=== PATIENT | female | born 1955 | race African-American/Black ===

== ENCOUNTER 2019-12-23 10:44 | Inpatient (IN) ==
[2019-12-23 11:29] LABS: Basophils % 0.5 % (0.0-0.8); Eosinophils # 0.1 10*3/uL (0.0-0.87); Hematocrit 46.7 VOL% (35.7-47.0); Immature Granulocytes % 0.3 %; Immature Granulocytes Absolute 0.02 #; Lymphocytes % 16.6 % (21.3-54.2); Mean Corpuscular HGB Conc 32.1 GM/DL (32-36); Mean Platelet Volume 9.7 FL (9.6-12.0); Monocytes % 5.1 % (1.7-12.7); Neutrophils % 76.5 % (38.7-73.9); Platelet Count 228 T/CUMM (130-400); Red Blood Count 5.02 MC/CUMM (3.8-5.5); Red Cell Distribution Width 13.3 % (9.3-17.3); White Blood Count 6.1 T/CUMM (4-12)
[2019-12-23 11:50] LABS: Albumin 2.8 G/DL (3.4-5.0); Bilirubin,Total 0.7 MG/DL (0.2-1.0); Calcium 9.3 MG/DL (8.5-10.1); Osmolality,Calculated 274.7 MOS/KG (273-304); Total Protein 8.4 G/DL (6.4-8.3)
[2019-12-23 11:53] LABS: Band Neutrophils 1 % (0-10); Eosinophils 1 % (0-10); Hypochromasia Slight; Lymphocytes 16 % (20-55); Platelet Estimate Normal; Segmented Neutrophils 75 % (50-85); Total Cells Counted 100
[2019-12-23 12:07] LABS: Apearance,Urine Slightly Hazy (Clear); Bacteria,Urine Many /HPF (Few); Bilirubin,Urine Negative (Negative); Blood, Urine Small mg/dL (Negative); Glucose,Urine (UA) Negative (Negative); Ketones,Urine Negative (Negative); Mucus,Urine Few /LPF (Occasional); Nitrite,Urine Positive (Negative); Protein,Urine 100 MG/DL; RBC,Urine 2 /HPF (0-4); Squamous Epithelial Cell,Urine Occasional /HPF (0-10); Urine Color Amber (Yellow)
[2019-12-23] MEDS ORDERED: DEXTROSE 50% 25 GM/50 ML VIAL IV PRN (13:57)
[2019-12-23] MEDS ORDERED: GLUCAGON 1 MG VIAL IM PRN (13:57)
[2019-12-23] MEDS ORDERED: ONDANSETRON 4 MG/2 ML VIAL IV PRN (13:57)
[2019-12-23] MEDS ORDERED: NICOTINE 21 MG/24 HR PATCH TRANSDERM PRN (13:57)
[2019-12-23] MEDS ORDERED: guaiFENesin/DM ER 600-30 MG TABLET PO PRN (13:57)
[2019-12-23] MEDS ORDERED: ENOXAPARIN 40 MG/0.4 ML SYRINGE SUBCUT SCH (14:00)
[2019-12-23] MEDS ORDERED: SODIUM CHLORIDE 0.9% 1,000 ML IV ONE (14:01)
[2019-12-23] MEDS ORDERED: AZITHROMYCIN INJ 500 MG in SODIUM CHLORIDE 0.9% 250 ML IV SCH (14:30)
[2019-12-23] MEDS: cefTRIAXone 1,000 MG in SYRINGE 1 EACH IV SCH (16:30)
[2019-12-23] MEDS: SODIUM CHLORIDE 0.9% 1,000 ML IV SCH (17:45)
[2019-12-23] MEDS: AZITHROMYCIN INJ 500 MG in SODIUM CHLORIDE 0.9% 250 ML IV SCH (17:45)
[2019-12-23] MEDS: ENOXAPARIN 40 MG/0.4 ML SYRINGE SUBCUT SCH (22:05)
[2019-12-24 06:06] LABS: Basophils % 0.6 % (0.0-0.8); Eosinophils # 0.1 10*3/uL (0.0-0.87); Eosinophils % 1.6 % (0.00-10.9); Hematocrit 36.9 VOL% (35.7-47.0); Hemoglobin 11.9 GM/DL (12.0-16.0); Immature Granulocytes % 0.6 %; Immature Granulocytes Absolute 0.03 #; Lymphocytes # 1.3 10*3/uL (1.4-4.0); Lymphocytes % 24.9 % (21.3-54.2); Mean Corpuscular HGB Conc 32.2 GM/DL (32-36); Mean Corpuscular Volume 91.8 FL (87-102); Mean Platelet Volume 9.8 FL (9.6-12.0); Monocytes % 6.6 % (1.7-12.7); Neutrophils % 65.7 % (38.7-73.9); Platelet Count 195 T/CUMM (130-400); Red Blood Count 4.02 MC/CUMM (3.8-5.5); Red Cell Distribution Width 13.4 % (9.3-17.3); White Blood Count 5.2 T/CUMM (4-12)
[2019-12-24 06:24] LABS: Bilirubin,Direct 0.18 MG/DL (0.0-0.20); Bilirubin,Indirect 0.8 MG/DL (0.0-1.0); Calcium 8.6 MG/DL (8.5-10.1); Osmolality,Calculated 278.3 MOS/KG (273-304); Total Protein 6.9 G/DL (6.4-8.3)
[2019-12-24 06:29] LABS: Hypochromasia 1+; Lymphocytes 18 % (20-55); Ovalocytes Slight; Platelet Estimate Adequate; Segmented Neutrophils 78 % (50-85); Total Cells Counted 100
[2019-12-24] MEDS: SODIUM CHLORIDE 0.9% 1,000 ML IV SCH ×2 (08:30→22:05)
[2019-12-24] MEDS ORDERED: POTASSIUM CHLORIDE 20 MEQ TABLET PO ONE (11:00)
[2019-12-24] MEDS: cefTRIAXone 1,000 MG in SYRINGE 1 EACH IV SCH (15:10)
[2019-12-24] MEDS: AZITHROMYCIN INJ 500 MG in SODIUM CHLORIDE 0.9% 250 ML IV SCH (18:32)
[2019-12-24] MEDS: ENOXAPARIN 40 MG/0.4 ML SYRINGE SUBCUT SCH (21:40)
[2019-12-24] MEDS: ALBUTEROL INHALER 18 GM INH SCH (21:40)
[2019-12-25] MEDS: ALBUTEROL INHALER 18 GM INH SCH ×3 (01:14→20:45)
[2019-12-25 05:15] LABS: Basophils % 0.3 % (0.0-0.8); Eosinophils # 0.1 10*3/uL (0.0-0.87); Eosinophils % 0.8 % (0.00-10.9); Hematocrit 36.3 VOL% (35.7-47.0); Hemoglobin 11.4 GM/DL (12.0-16.0); Immature Granulocytes % 0.5 %; Immature Granulocytes Absolute 0.03 #; Lymphocytes # 1.5 10*3/uL (1.4-4.0); Lymphocytes % 23.5 % (21.3-54.2); Mean Corpuscular HGB Conc 31.4 GM/DL (32-36); Mean Corpuscular Volume 93.8 FL (87-102); Mean Platelet Volume 10.2 FL (9.6-12.0); Monocytes % 7.4 % (1.7-12.7); Neutrophils % 67.5 % (38.7-73.9); Platelet Count 179 T/CUMM (130-400); Red Blood Count 3.87 MC/CUMM (3.8-5.5); Red Cell Distribution Width 13.6 % (9.3-17.3); White Blood Count 6.5 T/CUMM (4-12)
[2019-12-25 05:59] LABS: Hypochromasia 1+; Microcytosis Slight; Ovalocytes Slight; Platelet Estimate Adequate
[2019-12-25] MEDS: SODIUM CHLORIDE 0.9% 1,000 ML IV SCH ×2 (06:10→22:10)
[2019-12-25] MEDS ORDERED: amLODIPine 5 MG TABLET PO ONE (12:00)
[2019-12-25 14:55] LABS: Calcium 9.1 MG/DL (8.5-10.1); Osmolality,Calculated 276.4 MOS/KG (273-304)
[2019-12-25 16:30] LABS: ABG Base Excess -0.7 MMOL/L (-2.5-2.5); ABG HCO3 21.4 MMOL/L (20-26); ABG Oxygen Saturation 92.1 % (95-100); ABG PH 7.502 (7.35-7.45); ABG PO2 63.5 MM HG (80-95); ABG TCO2 22.3 MMOL/L (23-27)
[2019-12-25] MEDS: POTASSIUM CHLORIDE 20 MEQ TABLET PO SCH ×2 (16:45→20:45)
[2019-12-25] MEDS: cefTRIAXone 1,000 MG in SYRINGE 1 EACH IV SCH (16:45)
[2019-12-25] MEDS: AZITHROMYCIN INJ 500 MG in SODIUM CHLORIDE 0.9% 250 ML IV SCH (18:06)
[2019-12-25] MEDS: ENOXAPARIN 40 MG/0.4 ML SYRINGE SUBCUT SCH (20:45)
[2019-12-26] MEDS: POTASSIUM CHLORIDE 20 MEQ TABLET PO SCH (00:45)
[2019-12-26] MEDS: ACETAMINOPHEN 325 MG TABLET PO PRN ×2 (00:45→18:00)
[2019-12-26] MEDS: ALBUTEROL INHALER 18 GM INH SCH ×5 (00:45→20:50)
[2019-12-26] MEDS: SODIUM CHLORIDE 0.9% 1,000 ML IV SCH ×2 (02:15→15:29)
[2019-12-26 04:38] LABS: ABG Base Excess -1.4 MMOL/L (-2.5-2.5); ABG Oxygen Saturation 89.2 % (95-100); ABG PCO2 28.7 MM HG (35-48); ABG PH 7.482 (7.35-7.45); ABG TCO2 21.9 MMOL/L (23-27); Allen Test Positive; Pt O2 Delivery Device Other
[2019-12-26 05:32] LABS: Basophils % 0.2 % (0.0-0.8); Eosinophils # 0.1 10*3/uL (0.0-0.87); Eosinophils % 0.7 % (0.00-10.9); Hematocrit 34.9 VOL% (35.7-47.0); Hemoglobin 11.6 GM/DL (12.0-16.0); Immature Granulocytes % 0.7 %; Immature Granulocytes Absolute 0.06 #; Lymphocytes # 1.3 10*3/uL (1.4-4.0); Lymphocytes % 14.7 % (21.3-54.2); Mean Corpuscular HGB Conc 33.2 GM/DL (32-36); Mean Corpuscular Volume 91.8 FL (87-102); Mean Platelet Volume 10.7 FL (9.6-12.0); Monocytes % 6.3 % (1.7-12.7); Neutrophils % 77.4 % (38.7-73.9); Platelet Count 151 T/CUMM (130-400); Red Cell Distribution Width 13.5 % (9.3-17.3); White Blood Count 8.7 T/CUMM (4-12)
[2019-12-26 05:54] LABS: Calcium 8.5 MG/DL (8.5-10.1); Osmolality,Calculated 280.1 MOS/KG (273-304)
[2019-12-26] MEDS: amLODIPine 5 MG TABLET PO SCH (09:22)
[2019-12-26] MEDS: cefTRIAXone 1,000 MG in SYRINGE 1 EACH IV SCH (14:14)
[2019-12-26] MEDS ORDERED: FUROSEMIDE 40 MG/4 ML VIAL IV ONE (15:58)
[2019-12-26] MEDS: AZITHROMYCIN INJ 500 MG in SODIUM CHLORIDE 0.9% 250 ML IV SCH (18:06)
[2019-12-26] MEDS: ENOXAPARIN 40 MG/0.4 ML SYRINGE SUBCUT SCH (20:50)
[2019-12-27] MEDS: ALBUTEROL INHALER 18 GM INH SCH ×2 (00:32→10:19)
[2019-12-27] MEDS: ACETAMINOPHEN 325 MG TABLET PO PRN (03:50)
[2019-12-27 05:11] LABS: Basophils % 0.3 % (0.0-0.8); Eosinophils # 0.1 10*3/uL (0.0-0.87); Eosinophils % 1.1 % (0.00-10.9); Hematocrit 34.5 VOL% (35.7-47.0); Hemoglobin 11.4 GM/DL (12.0-16.0); Immature Granulocytes % 0.9 %; Lymphocytes # 1.1 10*3/uL (1.4-4.0); Lymphocytes % 9.7 % (21.3-54.2); Mean Corpuscular Volume 91.5 FL (87-102); Monocytes % 5.3 % (1.7-12.7); Neutrophils % 82.7 % (38.7-73.9); Platelet Count 136 T/CUMM (130-400); Red Blood Count 3.77 MC/CUMM (3.8-5.5); Red Cell Distribution Width 13.5 % (9.3-17.3); White Blood Count 11.2 T/CUMM (4-12)
[2019-12-27 05:28] LABS: Calcium 8.7 MG/DL (8.5-10.1); Osmolality,Calculated 278.4 MOS/KG (273-304)
[2019-12-27] MEDS: amLODIPine 5 MG TABLET PO SCH (10:19)
[2019-12-27] MEDS ORDERED: methylPREDNISolone SOD SUC 40 MG/1 ML VIAL IV SCH (11:00)
[2019-12-27 11:56] LABS: ABG Base Excess 1.5 MMOL/L (-2.5-2.5); ABG HCO3 25.4 MMOL/L (20-26); ABG Oxygen Saturation 79.9 % (95-100); ABG PCO2 28.8 MM HG (35-48); ABG PH 7.518 (7.35-7.45); ABG PO2 44.8 MM HG (80-95); ABG TCO2 20.7 MMOL/L (23-27)
[2019-12-27] MEDS ORDERED: ENOXAPARIN 40 MG/0.4 ML SYRINGE SUBCUT SCH ×2 (13:15→13:30)
[2019-12-27 13:51] VITALS: BP 151/100
[2019-12-27] MEDS ORDERED: SUCCINYLCHOLINE 200 MG/10 ML VIAL ONE (13:54)
[2019-12-27] MEDS ORDERED: SUCCINYLCHOLINE 200 MG/10 ML VIAL IV ONE (14:10)
[2019-12-27] MEDS ORDERED: propofoL 200 MG/20 ML VIAL IV ONE (14:10)
[2019-12-27] MEDS ORDERED: SODIUM CHLORIDE 0.9% 500 ML IV ONE (15:00)
[2019-12-27] MEDS: cefTRIAXone 1,000 MG in SYRINGE 1 EACH IV SCH (15:44)
[2019-12-27 16:16] LABS: ABG Base Excess -3.3 MMOL/L (-2.5-2.5); ABG HCO3 21.7 MMOL/L (20-26); ABG Oxygen Saturation 99.1 % (95-100); ABG PCO2 38.2 MM HG (35-48); ABG PH 7.362 (7.35-7.45); ABG TCO2 19.2 MMOL/L (23-27)
[2019-12-27] MEDS ORDERED: DIGOXIN 0.5 MG/2 ML AMP IV ONE ×2 (16:39→18:00)
[2019-12-27] MEDS ORDERED: fentaNYL INJ 1,250 MCG in SODIUM CHLORIDE 0.9% 225 ML IV PRN (16:46)
[2019-12-27] MEDS ORDERED: DOPamine 800 MG/250 ML PREMIX IV ONE (17:59)
[2019-12-27] MEDS ORDERED: PHENYLEPHRINE DRIP 40 MG/250 ML PREMIX IV ONE (18:15)
[2019-12-27] MEDS ORDERED: PHENYLEPHRINE DRIP 40 MG/250 ML PREMIX IV PRN (18:15)
[2019-12-27] MEDS ORDERED: ENOXAPARIN 60 MG/0.6 ML SYRINGE SUBCUT SCH (21:00)
== END 2019-12-27 18:58 | disposition expired | DRG 208 ==
LOC: N.ED 10:44 → SUATTDRO 13:57 → N.EDINP 13:57 → N.2E 15:08 → N.ICU 12-27 13:39
PROVIDERS: ADMIT Internal Medicine; ATTEND Internal Medicine